=== PATIENT | female | born 1990 | race Caucasian/White ===

== ENCOUNTER 2018-09-12 07:11 | Inpatient (IN) | payer BC, OTHER ==
[~2018-09-12] VITALS: Ht 175.3 cm; Wt 96.6 kg
[2018-09-12] VITALS (41 sets, daily range): BP systolic 112–174; BP diastolic 58–112
--- NOTE | 2018-09-12 07:11 | NUR ---
LUANN MONTESINOS presented to unit from Home, accompanied by Spouse, with c/o Induction of LABOR. LUANN MONTESINOS weighed, gowned, voided, and to bed. EFHM and TOCO applied, VS taken. LUANN MONTESINOS oriented to bed controls, call light, TV, heat, and A/C controls.
--- NOTE | 2018-09-12 07:31 | NUR ---
Dr. Cutler updated on patient's arrival. New orders received.
[2018-09-12] MEDS ORDERED: D5 LR IV SOLUTION 1,000 ML IV SCH (07:41)
[2018-09-12] MEDS ORDERED: OXYTOCIN/NORMAL SALINE 500 ML IV SCH ×2 (07:41→15:16)
[2018-09-12] MEDS ORDERED: D5 LR IV SOLUTION 1,000 ML IV ONE (07:44)
[2018-09-12] MEDS ORDERED: OXYTOCIN/NORMAL SALINE 500 ML IV ONE (07:44)
[2018-09-12] MEDS ORDERED: MINERAL OIL CONCENTRATE 99.9% 15 ML UDC TOP PRN (07:45)
[2018-09-12] MEDS ORDERED: AMOXICILLIN 250 MG (POLYMOX) CAP PO ONE (07:45)
[2018-09-12] MEDS ORDERED: ACETAMINOPHEN 500 MG TAB (TYLENOL) PO NR ×2 (07:45→14:45)
[2018-09-12 08:41] LABS: BASOPHILS % (AUTO) 0 % (0-10); EOSINOPHILS # (AUTO) 0.1 10^3/uL (0.0-0.3); EOSINOPHILS % (AUTO) 1 % (0-10); HEMATOCRIT 38 % (35-52); HEMOGLOBIN 12.8 G/DL (11.5-16.0); LYMPHOCYTES % (AUTO) 11 % (12-44); MEAN CORPUSCULAR HEMOGLOBIN 31 PG (25-34); MEAN CORPUSCULAR HGB CONC 34 G/DL (32-36); MEAN CORPUSCULAR VOLUME 90 FL (80-99); MEAN PLATELET VOLUME 10.4 FL (7.4-10.4); MONOCYTES # (AUTO) 0.9 X 10^3 (0.0-1.0); MONOCYTES % (AUTO) 10 % (0-12); NEUTROPHILS % (AUTO) 78 % (42-75); PLATELET COUNT 298 10^3/uL (130-400); RED CELL DISTRIBUTION WIDTH 13.6 % (10.0-14.5); WHITE BLOOD COUNT 8.9 10^3/uL (4.3-11.0)
[2018-09-12 08:50] LABS: BILIRUBIN,URINE NEGATIVE (NEGATIVE); CLARITY,URINE CLEAR; COLOR,URINE YELLOW; GLUCOSE, URINE (UA) NEGATIVE (NEGATIVE); KETONES,URINE NEGATIVE (NEGATIVE); LEUKOCYTE ESTERASE ,URINE 3+ (NEGATIVE); NITRITE,URINE NEGATIVE (NEGATIVE); PH,URINE 7 (5-9); PROTEIN,URINE 1+ (NEGATIVE); UROBILINOGEN,URINE NORMAL (NORMAL)
[2018-09-12] MEDS ORDERED: AMOXICILLIN 250 MG (POLYMOX) CAP PO SCH (09:00)
[2018-09-12] MEDS ORDERED: AMOXICILLIN 500 MG (POLYMOX) CAP PO SCH (09:00)
[2018-09-12 09:07] LABS: BACTERIA,URINE FEW /HPF
[2018-09-12] MEDS ORDERED: LACTATED RINGERS 1,000 ML IV ONE ×3 (09:22→10:57)
[2018-09-12] MEDS ORDERED: SUFENTA 0.6MCG/ML BUPIVA 0.125 100 ML ONE (09:27)
[2018-09-12] MEDS ORDERED: fentaNYL INJECTION 100 MCG/2 ML AMP ONE (09:39)
[2018-09-12] MEDS ORDERED: CHLORASEPTIC LOZENGE MM PRN ×2 (09:45→16:00)
[2018-09-12] MEDS ORDERED: CHLORASEPTIC LOZENGE MM ONE ×3 (09:45→15:54)
[2018-09-12] MEDS ORDERED: FLUT9.9S NS (09:57)
[2018-09-12] MEDS ORDERED: PREN1TAB79 PO (09:57)
[2018-09-12] MEDS ORDERED: LORA10TA76 PO (09:57)
[2018-09-12] MEDS ORDERED: FAMO20TA45 PO (09:57)
[2018-09-12] MEDS ORDERED: ACET-2267 PO (09:57)
--- NOTE | 2018-09-12 10:25 | NUR ---
Kiki Car ENTRY LEVEL CHEMIST here for epidural placement. Procedure explained, consent reviewed and signed by anesthesia. Questions answered to patient's satisfaction. Time out taken to verify correct patient/procedure. Patient up to side of bed, assisted into sitting position. Betadine prep done x3 and sterile drape applied. Local done, see anesthesia record. Test dose given, see anesthesia record for drug and dosage. Epidural catheter secured in place. Epidural placement complete. Assisted back into bed, monitors adjusted. Epidural dosed, see anesthesia record. Epidural of Sufenta/Bupivicaine @12 cc/hr stated per pump. Patient tolerated procedure well.
[2018-09-12] MEDS ORDERED: NALOXONE 0.4 MG/ML 1 ML (NARCAN) VIAL IV PRN (11:00)
[2018-09-12] MEDS ORDERED: ONDANSETRON 4 MG/2 ML (SDV) Z0FRAN IV PRN (11:00)
[2018-09-12] MEDS ORDERED: EPIDURAL (SUFENTA 0.6MCG/ML BUPIVA 0.125%) 100 ML BAG EPI PRN (11:00)
[2018-09-12] MEDS ORDERED: LIDOCAINE PF 2% 5 ML (XYLOCAINE) VIAL ONE (13:10)
[2018-09-12] MEDS ORDERED: BUPIVACAINE 0.25% 30 ML (SENSORCAINE) VIAL ONE (13:10)
[2018-09-12] MEDS ORDERED: CATHETER FLUSH 10 ML SYR IV SCH ×2 (14:00→22:00)
--- NOTE | 2018-09-12 14:12 | History & Physical-OB ---
OB - Chief Complaint & HPI Date/Time Date of Admission: Date of Admission: Sep 12, 2018 at 07:11 Date seen by a Provider: Sep 12, 2018 Time Seen by a Provider: 14:09 Chief Complaint/History OB-Reason for Admission/Chief: Induction of Labor Hx : 2 Hx Para: 2 Expected Date of Delivery: Sep 16, 2018 Gestational Age in Weeks: 39 Gestational Age in Days: 3 Indication for induction: maternal discomfort Admission Nurse Assessment Rev: Yes Allergies and Home Medications Allergies Coded Allergies: No Known Drug Allergies (Unverified , 09/12/18) Home Medications Acetaminophen 500 Mg Tablet, 1,000 MG PO Q8H PRN for PAIN-MILD OR TEMPATURE, ( Reported) Famotidine 20 Mg Tablet, 20 MG PO BID, (Reported) Fluticasone Propionate 9.9 Ml [place].susp, 2 SPRAY NS DAILY, (Reported) 2 SPRAYS PER NOSTRIL DAILY X 2 DAYS THEN 1 SPRAY DAILY Loratadine 10 Mg Tablet, 10 MG PO DAILY, (Reported) Vit W-Ca,Fe,FA(<1 mg) 1 Each Tablet, 1 EACH PO DAILY, (Reported) Patient Home Medication List Home Medication List Reviewed: Yes OB - History Hx of Present Care: Yes Ultrasounds: Normal mid trimester US Medical Complications: None Delivery History Adverse Rxn to Tranfusion: No Patient Past Medical History previously healthy Social History/Family History HIV/AIDS: No Sexually Transmitted Disease: No Alcohol Use: Denies Use Recreational Drug Use: No Immunizations Date of Influenza Vaccine: Apr 07, 2018 OB - Admission Exam Physical Exam Vitals: Vital Signs 09/12/18 09/12/18 09:45 10:15 Temp 98.4 Pulse 100 Resp 16 B/P (MAP) 130/73 (92) O2 Delivery Room Air HEENT: NCAT Heart: Rhythm Normal Lungs: Clear Abdomen: Gravid Extremities: Normal Reflexes: Normal Cervical Dilatation: 6cm Effacement: 75% Station: -1 Membranes: Ruptured Amniotic Fluid: Clear Heart Rate: 140's Accelerations: Accelerations Present Decelerations: No Decelerations Short Term Variability: Present Team Supervisor Variability: Average (6-25) Contractions on Admission: < 5 Minutes Apart Labs Laboratory Tests Test 09/12/18 07:15 09/12/18 08:30 Range/Units Urine Color YELLOW Urine Clarity CLEAR Urine pH 7 5-9 Urine Specific [place] 1.010 L 1.016-1.022 Urine Protein 1+ H NEGATIVE Urine Glucose (UA) NEGATIVE NEGATIVE Urine Ketones NEGATIVE NEGATIVE Urine Nitrite NEGATIVE NEGATIVE Urine Bilirubin NEGATIVE NEGATIVE Urine Urobilinogen NORMAL NORMAL MG/DL Urine Leukocyte Esterase 3+ H NEGATIVE Urine RBC (Auto) NEGATIVE NEGATIVE Urine RBC NONE /HPF Urine WBC 5-10 H /HPF Urine Squamous Epithelial Cells 5-10 /HPF Urine Crystals NONE /LPF Urine Bacteria FEW H /HPF Urine Casts NONE /LPF Urine Mucus NEGATIVE /LPF Urine Culture Indicated YES White Blood Count 8.9 4.3-11.0 10^3/uL Red Blood Count 4.18 L 4.35-5.85 10^6/uL Hemoglobin 12.8 11.5-16.0 G/DL Hematocrit 38 35-52 % Mean Corpuscular Volume 90 80-99 FL Mean Corpuscular Hemoglobin 31 25-34 PG Mean Corpuscular Hemoglobin Concent 34 32-36 G/DL Red Cell Distribution Width 13.6 10.0-14.5 % Platelet Count 298 130-400 10^3/uL Mean Platelet Volume 10.4 7.4-10.4 FL Neutrophils (%) (Auto) 78 H 42-75 % Lymphocytes (%) (Auto) 11 L 12-44 % Monocytes (%) (Auto) 10 0-12 % Eosinophils (%) (Auto) 1 0-10 % Basophils (%) (Auto) 0 0-10 % Neutrophils # (Auto) 7.0 1.8-7.8 X 10^3 Lymphocytes # (Auto) 1.0 1.0-4.0 X 10^3 Monocytes # (Auto) 0.9 0.0-1.0 X 10^3 Eosinophils # (Auto) 0.1 0.0-0.3 10^3/uL Basophils # (Auto) 0.0 0.0-0.1 10^3/uL OB - Assessment/Plan/Diagnosis Assessment Assessment: induction of labor Admission Dx Induction of labor. Admission Status: Inpatient Order (span 2 midnights) Reason for Inpatient Admission: Induction of labor. Plan Plan: Induction Induction Method: per Pitocin Protocol Copy Copies To 1: CHARLES CORTEZ MD, KATRINA M MD Sep 12, 2018 14:12
[2018-09-12] MEDS ORDERED: ACETAMINOPHEN 500 MG TAB (TYLENOL) ONE (14:35)
[2018-09-12] MEDS ORDERED: LIDOCAINE/EPI 2% 1:200,00 (XYLOCAINE) 10 ML VIAL ONE (14:45)
--- NOTE | 2018-09-12 15:18 | OB Labor & Delivery Record ---
Vag Delivery Note Vag Delivery Note Date of Delivery: 09/12/18 Preoperative Diagnosis: Zahira Moulton is a (28 /Para 2 / 2,Gestational Age (wks)39with [] Postoperative Diagnosis: Same Surgeon: CHARLES CORTEZ Java Tech: [none] Anesthesia: [epidural] Delivery Type: [] Findings: [] Viable [male] infant, apgars [8/9], weight [8 pounds 1 ounce] Lacerations: small 1st degree vaginal not repaired. Intact placenta with 3 vessel cord. One nuchal cord loose and delivered through. Estimated Blood Loss: [250] ml Complications: None Condition: Stable Description of Procedure: The patient is a 28 year old female who presented [for induction of labor]. She was admitted and informed consent was obtained. Her labor course was remarkable for [nothing] She progressed to complete dilatation and began to push. She was then set up for delivery. The infant's head was delivered atraumatically in the [OA] position. The shoulders and remainder of the infant' s body were then delivered without difficulty. Upon delivery, infant was suctioned and placed on maternal abdomen. Cord was doubly clamped and cut after 60 seconds. An intact placenta with 3-vessel cord delivered via True and there was found to be minimal bleeding.~ Vigorous fundal massage was performed and the fundus was found to be firm. IV oxytocin was given. Examination of the vagina and perineum revealed a [small hemostatic 1st degree perineal] laceration repaired in the usual fashion with 3-0 vicryl suture. Following the repair, sponge, instrument and needle counts were correct. Mom and baby were both in stable condition in the labor suite. Vitals - Labs Vital Signs - I&O Vital Signs Date Time Temp Pulse Resp B/P (MAP) Pulse Ox O2 Delivery O2 Flow Rate FiO2 09/12/18 10:50 94 16 117/71 (86) 98 Room Air 09/12/18 10:45 91 16 121/59 (79) 99 Room Air 09/12/18 10:43 86 16 121/59 (79) 98 Room Air 09/12/18 10:30 107 16 139/79 (99) 99 Room Air 09/12/18 10:25 89 16 142/80 (100) 99 Room Air 09/12/18 10:15 100 16 130/73 (92) Room Air 09/12/18 10:00 101 16 133/71 (91) Room Air 09/12/18 09:45 98.4 86 16 144/72 (96) Room Air 09/12/18 09:30 104 16 144/74 (97) Room Air 09/12/18 09:15 96 16 134/79 (97) Room Air 09/12/18 09:00 107 16 112/69 (83) Room Air 09/12/18 08:00 100.0 09/12/18 07:23 100.0 125 16 157/86 (109) Room Air Labs Laboratory Tests 09/12/18 07:15: Urine Color YELLOW, Urine Clarity CLEAR, Urine pH 7, Urine Specific [place] 1.010L, Urine Protein 1+H, Urine Glucose (UA) NEGATIVE, Urine Ketones NEGATIVE, Urine Nitrite NEGATIVE, Urine Bilirubin NEGATIVE, Urine Urobilinogen NORMAL, Urine Leukocyte Esterase 3+H, Urine RBC (Auto) NEGATIVE, Urine RBC NONE, Urine WBC 5-10H, Urine Squamous Epithelial Cells 5-10, Urine Crystals NONE, Urine Bacteria FEWH, Urine Casts NONE, Urine Mucus NEGATIVE, Urine Culture Indicated YES 09/12/18 08:30: White Blood Count 8.9, Red Blood Count 4.18L, Hemoglobin 12.8, Hematocrit 38, Mean Corpuscular Volume 90, Mean Corpuscular Hemoglobin 31, Mean Corpuscular Hemoglobin Concent 34, Red Cell Distribution Width 13.6, Platelet Count 298, Mean Platelet Volume 10.4, Neutrophils (%) (Auto) 78H, Lymphocytes (%) (Auto) 11L, Monocytes (%) (Auto) 10, Eosinophils (%) (Auto) 1, Basophils (%) (Auto) 0, Neutrophils # (Auto) 7.0, Lymphocytes # (Auto) 1.0, Monocytes # (Auto) 0.9, Eosinophils # (Auto) 0.1, Basophils # (Auto) 0.0 CHARLES CORTEZ MD Sep 12, 2018 15:18
[2018-09-12] MEDS ORDERED: TETANUS,DIPTH,PERTUSS P/F (BOOSTRIX) 0.5 ML VIAL IM ONE (15:30)
[2018-09-12] MEDS ORDERED: BENZOCAINE/MENTHOL (DERMOPLAST) 56 ML CAN TP PRN (15:30)
[2018-09-12] MEDS ORDERED: WITCH HAZEL(TUCKS) 40 EA JAR TOP PRN (15:30)
[2018-09-12] MEDS ORDERED: MEASLES,MUMPS,RUBELLA 1 EA INJ SQ ONE (15:30)
[2018-09-12] MEDS: IBUPROFEN 600 MG (MOTRIN) TAB PO SCH ×2 (15:37→21:51)
[2018-09-12] MEDS: OSELTAMIVIR 75 MG (TAMIFLU) CAPSULE PO SCH (17:58)
--- NOTE | 2018-09-12 18:00 | NUR ---
Report to Tyler Bajwa RN.
[2018-09-12] MEDS ORDERED: oxyCODONE/APAP 7.5-325 MG (PERCOCET 7.5) TABLET ONE (21:40)
[2018-09-12] MEDS ORDERED: ONDANSETRON 4 MG/2 ML (SDV) Z0FRAN ONE (21:41)
[2018-09-12] MEDS ORDERED: ONDANSETRON 4 MG/2 ML (SDV) Z0FRAN IVP PRN (22:00)
[2018-09-12] MEDS ORDERED: oxyCODONE/APAP 7.5-325 MG (PERCOCET 7.5) TABLET PO PRN (22:00)
[2018-09-13 01:00] VITALS: BP 121/69
[2018-09-13 04:00] VITALS: BP 108/71
[2018-09-13] MEDS: IBUPROFEN 600 MG (MOTRIN) TAB PO SCH ×4 (04:00→22:00)
[2018-09-13 06:36] LABS: BASOPHILS % (AUTO) 0 % (0-10); EOSINOPHILS % (AUTO) 0 % (0-10); HEMATOCRIT 37 % (35-52); HEMOGLOBIN 12.3 G/DL (11.5-16.0); LYMPHOCYTES # (AUTO) 1.7 X 10^3 (1.0-4.0); LYMPHOCYTES % (AUTO) 23 % (12-44); MEAN CORPUSCULAR HEMOGLOBIN 30 PG (25-34); MEAN CORPUSCULAR HGB CONC 33 G/DL (32-36); MEAN CORPUSCULAR VOLUME 90 FL (80-99); MEAN PLATELET VOLUME 10.6 FL (7.4-10.4); MONOCYTES # (AUTO) 0.7 X 10^3 (0.0-1.0); MONOCYTES % (AUTO) 9 % (0-12); NEUTROPHILS # (AUTO) 4.8 X 10^3 (1.8-7.8); NEUTROPHILS % (AUTO) 67 % (42-75); PLATELET COUNT 256 10^3/uL (130-400); RED CELL DISTRIBUTION WIDTH 13.4 % (10.0-14.5); WHITE BLOOD COUNT 7.1 10^3/uL (4.3-11.0)
[2018-09-13] MEDS: OSELTAMIVIR 75 MG (TAMIFLU) CAPSULE PO SCH ×2 (06:48→18:15)
--- NOTE | 2018-09-13 07:30 | NUR ---
To room to respond to call light. During diaper change, infant peed on linens. Fresh linens to bed. Will return for assessment. Pt denies further needs or concerns at this time.
--- NOTE | 2018-09-13 08:15 | NUR ---
Dr. Workman here to see pt. No new orders rec'd at this time. Pt desires to stay until tomorrow.
--- NOTE | 2018-09-13 09:58 | Progress Note (SOAP) ---
Subjective Subjective/Events-last exam Patient does not voice any complaints. She has minimal vaginal bleeding. She is more concerned about her influenza A that she was diagnosed with Review of Systems Date Seen by Provider: Sep 13, 2018 Time Seen by Provider: 08:00 Objective Exam Last Set of Vital Signs Vital Signs Date Time Temp Pulse Resp B/P (MAP) Pulse Ox O2 Delivery O2 Flow Rate FiO2 09/13/18 04:00 97.4 65 18 108/71 (83) 97 Room Air Capillary Refill : I&O Intake and Output 09/13/18 00:00 Intake Total 2875 ml Balance 2875 ml Intake IV Total 2875 ml Daily Weight Change No General: Alert, No Acute Distress Lungs: Clear to Auscultation Heart: Regular Rate Abdomen: Soft Results/Procedures Lab Laboratory Tests 09/13/18 06:18: White Blood Count 7.1, Red Blood Count 4.08L, Hemoglobin 12.3, Hematocrit 37, Mean Corpuscular Volume 90, Mean Corpuscular Hemoglobin 30, Mean Corpuscular Hemoglobin Concent 33, Red Cell Distribution Width 13.4, Platelet Count 256, Mean Platelet Volume 10.6H, Neutrophils (%) (Auto) 67, Lymphocytes (%) (Auto) 23 , Monocytes (%) (Auto) 9, Eosinophils (%) (Auto) 0, Basophils (%) (Auto) 0, Neutrophils # (Auto) 4.8, Lymphocytes # (Auto) 1.7, Monocytes # (Auto) 0.7, Eosinophils # (Auto) 0.0, Basophils # (Auto) 0.0 Microbiology 09/12/18 Influenza Types A,B Antigen (JOSE CARLOS) - Final, Complete Assessment/Plan Assessment/Plan Admission Dx 1. Intrauterine at term now status post spontaneous vaginal delivery Admission Status: Inpatient Order (span 2 midnights) Reason for Inpatient Admission: Patient was admitted yesterday and underwent spontaneous vaginal delivery by Dr. Cutler Assessment & Plan 1. Intrauterine at term now status post spontaneous vaginal delivery -Continue routine care orders. 2. Influenza A -Currently on Tamiflu Clinical Quality Measures DVT/VTE Risk/Contraindication: Risk Factor Score Per Nursin RFS Level Per Nursing on Admit: 1=Low/No VTE PPX EZEQUIEL AG MD Sep 13, 2018 09:58
--- NOTE | 2018-09-13 10:00 | NUR ---
IV D/C'd at this time. Shower set up for pt. Pt denies further needs or concerns at this time.
[2018-09-13 10:06] VITALS: BP 119/71
[2018-09-13 15:59] VITALS: BP 122/70
--- NOTE | 2018-09-13 16:09 | Anesthesia-Regional Post-Op ---
Regional Patient Condition Mental Status: Alert, Oriented x3 Circulation: Same as Pre-Op Headache: Absent Sensation: Full Recovery Motor Block: Absent Post Op Complications Complications None Follow Up Care/Instructions Patient Instructions None needed. Anesthesia/Patient Condition Patient is doing well, no complaints, stable vital signs, no apparent adverse anesthesia problems. No complications reported per nursing. KRISTEN PATEL CRNA Sep 13, 2018 16:09
[2018-09-13 22:00] VITALS: BP 121/72
--- NOTE | 2018-09-13 22:00 | NUR ---
Pt educated on isolation protocol and answers given pertaining to the flu concerns with other family members. Pt resting well with SO at bedside.
[2018-09-14 04:00] VITALS: BP 122/67
[2018-09-14] MEDS: IBUPROFEN 600 MG (MOTRIN) TAB PO SCH ×2 (04:03→10:02)
[2018-09-14] MEDS: OSELTAMIVIR 75 MG (TAMIFLU) CAPSULE PO SCH (04:04)
[2018-09-14] MEDS ORDERED: OSLT75C PO (08:05)
[2018-09-14] MEDS ORDERED: AZIT250T PO (08:05)
--- NOTE | 2018-09-14 08:07 | Discharge Inst-Women's Service ---
Discharge Inst-Women's Serv Depart Medication/Instructions New, Converted or Re-Newed RX: Transmitted to Pharmacy Consults/Follow Up Additional Follow Up: Yes (With Dr. Cutler in 6 weeks) Activity Driving Instructions: You May Drive Nothing Inside Vagina: No [place] (For 6 weeks) Diet Discharge Diet: Regular Diet Return to The Hospital For: As below Symptoms to Report to : Bleeding Excessive, Pain Increased, Fever Over 101 Degrees F, Pain/Pressure in Chest, Vaginal Discharge Foul For Any Problems or Questions: Contact Your Physician EZEQUIEL AG MD Sep 14, 2018 08:07
--- NOTE | 2018-09-14 08:23 | Discharge Summary ---
Diagnosis/Chief Complaint Date of Admission Sep 12, 2018 at 07:11 Date of Discharge September 14, 2018 Admission Diagnosis Admission Diagnosis 1. Intrauterine at term 39 weeks Discharge Diagnosis 1. Intrauterine at term 39 weeks Chief Complaint/HPI Chief Complaint/HPI 28-year-old female 2 now term 2 who presented to labor and delivery on September 12, 2018. Her course was essentially unremarkable and was provided by Dr. Cortez. Discharge Summary-OBS Procedures 1. Epidural per anesthesia 2. Spontaneous vaginal delivery 3. Repair of minor perineal laceration Discharge Physical Examination Allergies: Coded Allergies: No Known Drug Allergies (Unverified , 09/12/18) Vitals & I&Os Vital Sign - Last 12Hours Date Time Temp Pulse Resp B/P (MAP) Pulse Ox O2 Delivery O2 Flow Rate FiO2 09/14/18 04:00 97.8 70 18 122/67 (85) 99 Room Air General Appearance: No Acute Distress Respiratory: Normal Air Movement, Other (Slight coarseness) Cardiovascular: Regular Rate Abdominal: Soft (With uterus firm) Skin: No Rashes Psych/Mental Status: Mental Status NL Hospital Course Following delivery of patient by Dr. Cortez she underwent routine care orders. She did have fever initially following delivery in which she was found to have influenza A. Patient was placed on Tamiflu 75 mg twice daily. Her fever responded well and she remained afebrile during the day of September 13 and was felt ready for dismissal on the day of September 14. Her hemoglobin was stable as well with value of 12.3 on September 13 compared to 12.8 on admission. Patient was without any significant vaginal bleeding. She had no complaints and was tolerating regular diet. She did not have any leg pain or shortness of breath. Patient was felt ready for dismissal in the morning of September 14. She will follow up with Dr. Cortez in 6 weeks. Labs Microbiology 09/12/18 Influenza Types A,B Antigen (JOSE CARLOS) - Final, Complete 09/12/18 Urine Culture - Final, Complete 3 or more isolates Discharge Instructions to patient/family Please see electronic discharge instructions given to patient. Discharge Medications Reviewed and agree with Discharge Medication list on patient's Discharge Instruction sheet Clinical Quality Measures DVT/VTE Risk/Contraindication: Risk Factor Score Per Nursin RFS Level Per Nursing on Admit: 1=Low/No VTE PPX Copy Copies To 1: CHARLES CORTEZ MD, DANIEL J MD Sep 14, 2018 08:23
--- NOTE | 2018-09-14 08:30 | NUR ---
DR. AG HERE TO SEE PT. PLAN FOR DISCHARGE TODAY.
[2018-09-14] MEDS ORDERED: TETANUS,DIPTH,PERTUSS P/F (BOOSTRIX) 0.5 ML VIAL IM ONE (09:17)
[2018-09-14 10:08] VITALS: BP 116/69
--- NOTE | 2018-09-14 10:15 | NUR ---
Discharge instructions explained, signed and copy to pt. pt verbalized understanding of instructions and denied questions.
--- NOTE | 2018-09-14 11:10 | NUR ---
DISMISSED FROM [facility] WITH IN STABLE CONDITION TO [facility] BY ALEXANDRA GIBBS.
== END 2018-09-14 11:10 | disposition home or self-care (01) | DRG 806 ==
LOC: LDRP 07:11 → WS 09:01 → LDRP 09:01
PROVIDERS: ADMIT Family Medicine; ATTEND Family Medicine
PROC: 10E0XZZ Delivery of Products of Conception, External Approach (ICD-10-PCS; principal; 2018-09-12)
PROC: 3E033VJ Introduction of Other Hormone into Peripheral Vein, Percutaneous Approach (ICD-10-PCS; 2018-09-12)
DX: O70.0 First degree perineal laceration during delivery (principal); O69.81X0 Labor and delivery complicated by cord around neck, without compression, not applicable or unspecified; O98.52 Other viral diseases complicating childbirth; J10.1 Influenza due to other identified influenza virus with other respiratory manifestations; Z37.0 Single live birth; Z3A.39 39 weeks gestation of pregnancy
CPT/HCPCS: 36415; 81000; 85025; 86850; 86900; 86901; 87088; 87804; 90715

== ENCOUNTER 2019-05-01 10:46 | Outpatient (CLI) | payer BC ==
[~2019-05-01] VITALS: Ht 175.3 cm; Wt 75.0 kg
[~2019-05-01 10:46] MED LIST: ACET-2267 PO; AZIT250T PO; FAMO20TA45 PO; FLUT9.9S NS; LORA10TA76 PO; OSLT75C PO; PREN1TAB79 PO
[2019-05-01] MEDS ORDERED: bcp PO (11:00)
== END 2019-05-01 11:07 | disposition home or self-care (01) ==
LOC: PREOP 10:46
PROVIDERS: ATTEND Surgery
DX: Z01.818 Encounter for other preprocedural examination (principal)

== ENCOUNTER → 2019-08-31 | Outpatient (CLI) | payer BC ==
[~2019-08-31] MED LIST changes: +bcp PO
== END ==
LOC: LAB FS 11:44
PROVIDERS: ATTEND Family Medicine
DX: N92.6 Irregular menstruation, unspecified (principal)
CPT/HCPCS: 36415; 84403; 84443